=== PATIENT | female | born 1935 | race Two or more races ===

== ENCOUNTER → 2023-04-24 | Outpatient (CLI) | payer OTHER ==
[2023-04-24 09:41] LABS: Basophils # (auto) 0 10 ^3/uL (0-0.2); Basophils % (auto) 0.9 % (0.0-2.0); Eosinophils # (auto) 0.1 10 ^3/uL (0-0.8); Eosinophils % (auto) 2.6 % (0.0-7.0); Hematocrit 40.9 % (36.0-46.0); Hemoglobin 13.7 g/dL (12.2-16.2); Lymphocytes % (auto) 38.3 % (10.0-50.0); Mean Corpuscular Hemoglobin 29.3 pg (28.0-32.0); Mean Corpuscular Hgb Conc. 33.5 g/dL (32.0-36.0); Mean Corpuscular Volume 87.3 fL (80.0-100.0); Monocytes # (auto) 0.5 10 ^3/uL (0-1.3); Neutrophils # (auto) 2.6 10 ^3/uL (1.6-8.6); Neutrophils % (auto) 49.2 % (37.0-80.0); Red Blood Cells 4.68 10^6/uL (4.0-5.20); Red Cell Distribution Width 14.2 % (11.8-14.3); White Blood Cell 5.3 10^3/uL (4.4-10.8)
[2023-04-24 10:23] LABS: Calcium 8.8 mg/dL (8.5-10.1)
[2023-04-24 10:38] LABS: Albumin 3.7 g/dL (3.4-5.0); BUN/Creatinine Ratio 23.7 (10.0-20.0); Bilirubin, Total 0.4 mg/dL (0.2-1.0); Total Protein 6.9 g/dL (6.4-8.2)
== END | disposition home or self-care (01) ==
LOC: LAB 09:13
PROVIDERS: ATTEND Family Medicine
DX: Z12.11 Encounter for screening for malignant neoplasm of colon (principal); E03.9 Hypothyroidism, unspecified; I10 Essential (primary) hypertension; R73.09 Other abnormal glucose; R73.03 Prediabetes; F33.9 Major depressive disorder, recurrent, unspecified
CPT/HCPCS: 36415; 80053; 80061; 83036; 84443; 85025

== ENCOUNTER → 2023-08-06 | Outpatient (CLI) | payer OTHER ==
[2023-08-06 10:07] LABS: Alanine Aminotransferase 18 U/L (7-40); Alkaline Phosphatase 68 U/L (46-116); Blood Urea Nitrogen 12 mg/dL (9-23); Calcium 9.9 mg/dL (8.5-10.1); Carbon Dioxide 31 mmol/L (20-30); Glucose 93 mg/dL (74-106); Triglycerides 127 mg/dL (< 150)
[2023-08-06 10:08] LABS: LDL Cholesterol 95 mg/dL (< 100)
[2023-08-06 10:09] LABS: Albumin 4.4 g/dL (3.2-4.8); Aspartate Aminotransferase 22 U/L (13-40); Bilirubin, Total 0.6 mg/dL (0.2-1.0); Cholesterol 173 mg/dL (< 200); HDL Cholesterol 65 mg/dL (40-59); Total Protein 6.9 g/dL (5.7-8.2)
[2023-08-06 10:35] LABS: Anion Gap 4 (5-15); Chloride 105 mmol/L (98-107); Potassium 5.1 mmol/L (3.5-5.1); Sodium 140 mmol/L (136-145)
== END | disposition home or self-care (01) ==
LOC: LAB 09:17
PROVIDERS: ATTEND Family Medicine
DX: I12.9 Hypertensive chronic kidney disease with stage 1 through stage 4 chronic kidney disease, or unspecified chronic kidney disease (principal); E11.22 Type 2 diabetes mellitus with diabetic chronic kidney disease; N18.9 Chronic kidney disease, unspecified; E11.65 Type 2 diabetes mellitus with hyperglycemia; E78.5 Hyperlipidemia, unspecified; E03.9 Hypothyroidism, unspecified
CPT/HCPCS: 36415; 80053; 80061; 83036; 84443